=== PATIENT | female | born 1970 | race Caucasian/White ===

== ENCOUNTER → 2016-03-14 | Outpatient (CLI) | payer OTHER ==
[~2016-03-14] MED LIST: HYDR12.55 PO; MEDR10TA PO
--- NOTE | 2016-03-14 16:46 | MAMMOGRAPHY REPORT ---
BILATERAL DIGITAL SCREENING MAMMOGRAM TOMOSYNTHESIS WITH CAD: 03/14/2016 CLINICAL HISTORY: Routine screening examination. TECHNIQUE: Breast tomosynthesis in addition to standard 2D mammography was performed. Current study was also evaluated with a Computer Aided Detection (CAD) system. COMPARISON: Comparison is made to exams dated: 03/10/2015 mammogram, 10/29/2013 ultrasound, and 009 mammogram - [facility]. BREAST COMPOSITION: The tissue of both breasts is almost entirely fatty. FINDINGS: There are benign rim calcifications in both breasts. No suspicious mass, architectural d istortion or cluster of microcalcifications is seen. IMPRESSION: ACR BI-RADS CATEGORY 2: BENIGN There is no mammographic evidence of malignancy. A 1 year screening mammogram is recommended. The p atient will receive written notification of the results. Approximately 10% of breast cancers are not detected with mammography. A negative mammographic repor t should not delay biopsy if a clinically suggestive mass is present. Anita Akbar M.D. ay/:03/14/2016 15:19:40 Ramp Agent: Deborah KENT(R)(M), [facility] letter sent: Normal 1/2 BI-RADS Code: ACR BI-RADS Category 2: Benign
== END | disposition home or self-care (01) ==
LOC: C.MAMM 07:48
PROVIDERS: ATTEND Internal Medicine
DX: Z12.31 Encounter for screening mammogram for malignant neoplasm of breast (principal)

== ENCOUNTER → 2016-03-17 | Outpatient (CLI) | payer OTHER | END | disposition home or self-care (01) | LOC: C.PAPS 14:44 | PROVIDERS: ATTEND Internal Medicine | DX: Z12.4 Encounter for screening for malignant neoplasm of cervix (principal) ==

== ENCOUNTER → 2017-03-20 | Outpatient (CLI) | payer OTHER ==
--- NOTE | 2017-03-21 14:39 | MAMMOGRAPHY REPORT ---
BILATERAL DIGITAL SCREENING MAMMOGRAM TOMOSYNTHESIS WITH CAD: 03/20/2017 CLINICAL HISTORY: Routine screening. Patient has no complaints. TECHNIQUE: Breast tomosynthesis in addition to standard 2D mammography was performed. Current study was also evaluated with a Computer Aided Detection (CAD) system. COMPARISON: Comparison is made to exams dated: 03/14/2016 mammogram, 03/10/2015 mammogram, 03/06/2014 m ammogram, 10/29/2013 ultrasound, 10/29/2013 mammogram, and 03/05/2013 mammogram - [facility]. BREAST COMPOSITION: The tissue of both breasts is almost entirely fatty. FINDINGS: There is a small 7 mm asymmetry with associated calcifications in the left upper outer santos drant posteriorly, best seen on the cc view, for which spot magnification views, spot compression boni osynthesis views, and possible breast ultrasound are recommended for further evaluation. The remainder of both breasts are stable compared to prior exams, without suspicious masses, calcific ations, or areas of architectural distortion noted. Other scattered bilateral benign-appearing calci fications are again noted. IMPRESSION: ACR BI-RADS CATEGORY 0: INCOMPLETE EVALUATION: NEED ADDITIONAL IMAGING EVALUATION Left breast asymmetry and associated calcifications, for which additional imaging evaluation is recom mended. The patient will be called to schedule an appointment. Approximately 10% of breast cancers are not detected with mammography. A negative mammographic report should not delay biopsy if a clinically suggestive mass is present. Koki Garcia M.D. /:03/20/2017 16:08:28 Housing Officer: Jyothi Mcwilliams, [facility] letter sent: Addl Imaging 0 BI-RADS Code: ACR BI-RADS Category 0: Incomplete Evaluation: Need Additional Imaging Evaluation
== END | disposition home or self-care (01) ==
LOC: C.MAMM 07:32
PROVIDERS: ATTEND Internal Medicine
DX: Z12.31 Encounter for screening mammogram for malignant neoplasm of breast (principal); N64.89 Other specified disorders of breast; R92.1 Mammographic calcification found on diagnostic imaging of breast

== ENCOUNTER → 2017-03-31 | Outpatient (CLI) | payer OTHER ==
--- NOTE | 2017-03-31 15:28 | MAMMOGRAPHY REPORT ---
UNILATERAL LEFT DIGITAL DIAGNOSTIC MAMMOGRAM TOMOSYNTHESIS AND TARGETED LEFT ULTRASOUND: 03/31/2017 CLINICAL HISTORY: Callback from screening mammogram for left breast asymmetry and associated calcific ations. TECHNIQUE: Breast tomosynthesis in addition to standard 2D mammography was performed. Spot magnific ation left CC and ML views and spot compression left CC and MLO tomosynthesis images were obtained. COMPARISON: Comparison is made to exams dated: 03/20/2017 mammogram, 03/14/2016 mammogram, 03/10/2015 m ammogram, 03/06/2014 mammogram, 03/05/2013 mammogram, and 01/22/2009 mammogram - [facility] enter. BREAST COMPOSITION: The tissue of the left breast is almost entirely fatty. FINDINGS: Spot compression views demonstrate a persistent 6 mm superficially located, mixed density a symmetry within the left upper outer quadrant. The asymmetry is of mixed density including fat densi ty. A few punctate calcifications are seen within the asymmetry. Targeted ultrasound was performed of the left upper outer quadrant in the region of the mammographic asymmetry. In the left breast at 1:00, approximately 8 cm from the nipple, there are 3 grouped oval hypoechoic and anechoic cystic-appearing masses, one measuring 3 mm into measuring 2 mm. The masses are subdermal in location. The total extent of the finding measures approximately 7 mm. The finding s on ultrasound are felt to correlate with the mammographic asymmetry and calcifications and have the appearance of oil cysts related to fat necrosis. The patient denies any known trauma to the region. IMPRESSION: ACR-BI-RADS CATEGORY 3: PROBABLY BENIGN, TARGETED ULTRASOUND ACR-BI-RADS CATEGORY 3: PRO BABLY BENIGN New 6 mm superficial mixed density asymmetry with associated calcifications in the left upper outer q uadrant mammographically. Three adjacent subdermal cystic-appearing masses are seen in the left 1:00 breast on ultrasound, which are felt to correspond with the mammographic asymmetry and have the appe arance of oil cysts related to fat necrosis. The findings are probably benign and likely represent f at necrosis. Recommend follow-up diagnostic tomosynthesis mammograms and possible ultrasound of the left breast in 3 months to reevaluate. The patient has been verbally notified of the results. Approximately 10% of breast cancers are not detected with mammography. A negative mammographic report should not delay biopsy if a clinically suggestive mass is present. Koki Garcia M.D. ah/:03/31/2017 09:08:06 Data Coder Operator: Rocio KENT(R)(M), [facility] letter sent: Follow Up Recommended 3 BI-RADS Code: ACR-BI-RADS Category 3: Probably Benign Ultrasound BI-RADS: ACR-BI-RADS Category 3: Pr obably Benign
== END | disposition home or self-care (01) ==
LOC: C.MAMM 07:47
PROVIDERS: ATTEND Internal Medicine
DX: N64.89 Other specified disorders of breast (principal); R92.1 Mammographic calcification found on diagnostic imaging of breast; N63.21 Unspecified lump in the left breast, upper outer quadrant

== ENCOUNTER → 2017-04-04 | Outpatient (CLI) | payer OTHER | END | disposition home or self-care (01) | LOC: C.PAPS 09:11 | PROVIDERS: ATTEND Obstetrics & Gynecology | DX: Z12.4 Encounter for screening for malignant neoplasm of cervix (principal) ==

== ENCOUNTER → 2017-06-27 | Outpatient (CLI) | payer OTHER ==
--- NOTE | 2017-06-28 15:08 | MAMMOGRAPHY REPORT ---
UNILATERAL LEFT DIGITAL DIAGNOSTIC MAMMOGRAM TOMOSYNTHESIS WITH CAD AND TARGETED LEFT ULTRASOUND: 06/27 CLINICAL HISTORY: Follow-up of a superficial mixed density asymmetry with associated calcifications i n the upper outer posterior left breast. TECHNIQUE: Left breast CC, MLO, X CCM 2D and tomosynthesis images; spot magnification left CC and ML views were obtained. Current study was also evaluated with a Computer Aided Detection (CAD) system. COMPARISON: Comparison is made to exams dated: 03/31/2017 ultrasound, 03/31/2017 mammogram, 03/20/2017 ma mmogram, 03/14/2016 mammogram, 03/10/2015 mammogram, and 10/29/2013 ultrasound - [facility] nt. BREAST COMPOSITION: The tissue of the left breast is almost entirely fatty. FINDINGS: There is a persistent irregular 6 mm focal asymmetry in the upper outer posterior left todd ast containing internal punctate calcifications that differ slightly in size. The calcifications are slightly more conspicuous and may be possibly increased in number comparing to the prior exam. The asymmetry is unchanged in size. No other new suspicious masses, calcifications, areas of architectur al distortion or asymmetries are seen in the left breast. There are numerous benign rim calcificatio ns anteriorly. Repeat targeted ultrasound was performed in the 12:00, 1:00 and 2:00 axes of the left breast. In the 8:00 axis, there are grouped anechoic and hypoechoic cystic-appearing masses versus fat necrosis caty t appears similar to the prior ultrasound and currently measures 6.9 x 5.7 mm in conglomerate. It is unclear if the sonographic finding definitively correlate with the mammographic findings of an asymm etry with calcifications. The sonographic finding demonstrates the classic appearance of fat necrosi s although the mammographic finding does not definitively demonstrate fat necrosis. Therefore, defin itive characterization with a left breast stereotactic guided biopsy is recommended. IMPRESSION: ACR BI-RADS CATEGORY 4: SUSPICIOUS, TARGETED ULTRASOUND ACR BI-RADS CATEGORY 4: SUSPICIO US 1. Left breast stereotactic guided biopsy is recommended for a 6 mm focal asymmetry with associated punctate microcalcification in the upper outer posterior breast. These results and recommendations were discussed with the patient at the time of the exam. She tenta tively scheduled a left breast biopsy prior to leaving our department. Approximately 10% of breast cancers are not detected with mammography. A negative mammographic report should not delay biopsy if a clinically suggestive mass is present. Anita Akbar M.D. ay/:06/27/2017 15:19:03 Gis Professor: Jyothi Mcwilliams, [facility] letter sent: Abnormal 4/5 BI-RADS Code: ACR BI-RADS Category 4: Suspicious Ultrasound BI-RADS: ACR BI-RADS Category 4: Suspici ous
== END | disposition home or self-care (01) ==
LOC: C.MAMM 08:10
PROVIDERS: ATTEND Internal Medicine
DX: N64.89 Other specified disorders of breast (principal); R92.0 Mammographic microcalcification found on diagnostic imaging of breast

== ENCOUNTER → 2017-07-04 | Outpatient (CLI) | payer OTHER ==
--- NOTE | 2017-07-04 13:17 | Discharge Instructions ---
Discharge Instructions Procedure Procedure Date: July 04, 2017. Reason for visit: Left Calcifications. Discharge Discharge Date: July 04, 2017. Discharge Diagnosis: post left breast stereotactic guided biopsy Instructions Activity Recommendations: Additional Limitations (see below) Return to School/Work: no limitations Recommended Home Diet: No Limitations Provider Instructions: ACTIVITY RECOMMENDATIONS: * No lifting, pushing, pulling or exercising the affected side for three days. RETURN TO SCHOOL/WORK: * You may return to work/school after the procedure, but do not perform any strenuous activities for 24 to 48 hours. MEDICATIONS: * Tylenol (two 325 mg) every four to six hours if needed for mild pain (if not allergic to Tylenol). DIET: * Resume previous diet. SPECIAL CARE INSTRUCTIONS: * Keep biopsy site dry for 24 hours. May shower after 24 hours, but do not soak (bathe) incision. * May remove Tegaderm (plastic patch) tomorrow AFTER showering. * Leave the steri-strips on for one week. Allow the steri-strips to fall off by themselves. If not off after one week, you may remove them. You may place a Bandaid crosswise over the strips, if desired. * Apply ice 10 minutes on and 10 minutes off as needed. * Wear a bra at bedtime to sleep more comfortably for 2-3 days. * Your referring physician should have the results after approximately 5 to 7 business days. * Call for unusual bleeding, fever, drainage, etc or if you have any questions call [phone] during normal business hours or after hours call Dr Akbar, . FOLLOW UP VISIT: Follow-up with Referring Physician as scheduled. Allergies Coded Allergies: Cetirizine (Verified Allergy, Unknown, BLOTCHY SKIN, 04/01/15) Tyrell García Recommendations: Call your doctor if: * Temperature above 101 degrees * Pain not relieved by pain medicine ordered * There is increased drainage or redness from any incision * You have any unanswered questions or concerns. Your Doctors Instructions noted above were prepared by provider Anita Akbar. Patient Signature Section: Patient Instructions Signature Page Sybil Josephine Patient (or Guardian) Signature/Date: I have read and understand the instructions given to me by my caregivers. Caregiver/RN/Doctor Signature/Date: The above-named patient and/or guardian has received patient instructions on this date. + Original Patient Signature Page (only) stays with chart. Please make copy for patient.
--- NOTE | 2017-07-04 15:03 | MAMMOGRAPHY REPORT ---
STEREOTACTIC GUIDED BIOPSY LEFT BREAST: 07/04/2017 CLINICAL HISTORY: 6 mm focal asymmetry with associated punctate microcalcification in the upper outer posterior left breast. Patient presents for stereotactic guided biopsy. COMPARISON: Comparison is made to exams dated: 06/27/2017 ultrasound, 06/27/2017 mammogram, 03/31/2017 ult rasound, 03/31/2017 mammogram, 03/20/2017 mammogram, and 03/14/2016 mammogram - [facility]. PATIENT CONSENT: After explaining the risks, benefits and alternatives of the procedure to the patien t, informed consent was obtained both verbally and in writing. Specific risks include: Bleeding, inf ection, puncture of adjacent structure, pain, nontarget biopsy, sampling error, metal allergy and med ication reaction. PROCEDURE DESCRIPTION: A time-out was performed and the right breast was confirmed as the site of bio psy. The patient was placed prone on the stereotactic biopsy table and the breast was placed in later al - medial compression. A tomosynthesis veneer layer view was obtained which redemonstrates the area of asy mmetry with associated punctate microcalcification, which is amenable to stereotactic tomosynthesis g uided biopsy. The calcifications were targeted utilizing the coordinates obtained by the computer. The skin was prepped with Betadine. 1% Lidocaine with and without epinipherine was administered as lo irvin anesthesia. A small skin incision was made. Through the incision, the needle was inserted to the depth determined by the computer. 6 samples were obtained using a miradio.fmiva 9-gauge vacuum-assiste d biopsy device. The specimen radiograph demonstrated a few human resources representative microcalcifications, there fore, a metallic marker was placed at the biopsy site. There was no immediate complication. Hemostasi s was achieved after several minutes of manual compression. The samples were sent to pathology in tw o appropriately labeled containers, "with calcifications" and "without calcifications". All of the sa mples were obtained from the same single biopsy site. Postprocedure CC and ML reno views of the left breast were obtained. There is a new dumbbell-shaped biopsy marker clip and no significant hematoma in the upper outer posterior left breast, at the site of the biopsied asymmetry and associated calcifications in question. A few residual microcalcificati ons remain in the left breast adjacent to the biopsy marker clip. IMPRESSION: STEREOTACTIC GUIDED BIOPSY Status post left breast stereotactic guided biopsy of a 6 mm focal asymmetry with associated punctate microcalcification, in the upper outer quadrant posteriorly. A dumbbell-shaped biopsy marker clip w as placed at the site. The patient will receive notification of the biopsy results from her referring physician. Anita Akbar M.D. ay/:07/04/2017 14:43:12 Aviation Consultant: Jyothi Mcwilliams, [facility]
--- NOTE | 2017-07-04 15:05 | MAMMOGRAPHY REPORT ---
UNILATERAL LEFT DIGITAL DIAGNOSTIC MAMMOGRAM TOMOSYNTHESIS: 07/04/2017 CLINICAL HISTORY: 47-year-old woman with a 6 mm focal asymmetry with associated punctate microcalcifi cation in the upper outer posterior left breast. She presents for tissue sampling with stereotactic guided biopsy. Please refer to the report from left breast stereotactic guided biopsy performed at the same time for full detail. IMPRESSION: POST PROCEDURE IMAGING FOR MARKER PLACEMENT Please refer to the report from left breast stereotactic guided biopsy performed at the same time for full detail. Approximately 10% of breast cancers are not detected with mammography. A negative mammographic report should not delay biopsy if a clinically suggestive mass is present. Anita Akbar M.D. ay/:07/04/2017 13:20:46 Physicist Nuclear: Jyothi Mcwilliams, [facility] BI-RADS Code: Post Procedure Imaging For Marker Placement
== END | disposition home or self-care (01) ==
LOC: C.MAMM 12:37
PROVIDERS: ATTEND Internal Medicine
DX: R92.0 Mammographic microcalcification found on diagnostic imaging of breast (principal)